=== PATIENT | female | born 1990 | race Caucasian/White ===

== ENCOUNTER → 2018-01-01 | Outpatient (CLI) | payer OTHER ==
--- NOTE | 2018-01-01 10:36 | Diagnostic Imaging Report ---
INDICATION: Palpable abnormality of the left breast. TECHNIQUE: Multiple realtime grayscale images were obtained of the left breast in various projections. FINDINGS: At the 4 o'clock position of the left breast, 3 cm from the nipple, there is a 5 mm cyst. No other discrete masses are appreciated. IMPRESSION: Category 2, benign. A 5 mm cyst of the left breast, otherwise unremarkable left breast ultrasound. Dictated by: Dictated on workstation # [id number]
== END ==
LOC: RAD 08:51
PROVIDERS: ATTEND Nurse Practitioner Family
DX: N60.02 Solitary cyst of left breast (principal)
CPT/HCPCS: 76642